=== PATIENT | male | born 1975 | race Caucasian/White ===

== ENCOUNTER 2019-02-01 11:24 | Emergency (ER) | payer MEDICAID, SELFPAY ==
[2019-02-01 11:25] VITALS: BP 149/106; PULSE 87; RESP 17; TEMP 36.9; O2SAT 98; BMI 23.6
--- NOTE | 2019-02-01 11:58 | ED.DCSUM_ITS ---
- ER Visit Summary Date of Service: 02/01/19 Chief Complaint: Eyelid red and swollen secondary to foreign body History of Present Illness: The patient is a 43 M past medical or surgical history. He wears glasses but not contacts. He was helping a friend put in a tile floor when he got a piece of tile into his left eyelid. He said he had swelling today and redness of the eyelid when he looked in the mirror he thought he saw some and pulled out a piece of tile out of his left lower lid this morning. He used tweezers to pull it out. He thinks that was the only piece that was in there. But now is concerned it may be infected. He denies any eyeball pain or change in his vision. Physical Examination: Middle-aged male no acute distress vital signs stable afebrile. HEENT exam pupils round react light extra motions are intact. There is no injection. The left lower lid is mildly red and swollen consistent with an infection. I did place tetracaine and floor seen in his left eye and it was unremarkable underfoot lamp examination of body. When evaluating his left lower lid I do not see any obvious signs of foreign body at this time. I discussed that with the patient he understands that we may see all the foreign body due to the swelling and infection. There is no need for any incision and drainage at this time. Otherwise exam unremarkable. Test Results: Discussed with patient we will defer on imaging at this time. He understands if this does not improve he may need imaging to rule out foreign body under the skin. Emergency Department Course and Treatment: Slit-lamp exam the left eye was unre markable. Will be started on Keflex 500 4 times daily for 10 days. Treatment Plan: Warm compresses. Keflex 4 times daily. Follow-up with eye doctor if not improving. If not improving he may need imaging. Disposition: Discharge Impression: Left lower eyelid puncture wound with foreign body removed by patient at home with cellulitis. This note was generated with [employer] dictation software. It may contain incorrect words, spelling, and punctuation that were not noted in review of the chart prior to signing ED Disposition - Plan for ED Patient: Referrals: Care Physician,No Primary [Primary Care Provider] -
--- NOTE | 2019-02-01 12:01 | ED.DEP ---
ED Disposition - Plan for ED Patient: Disposition: Home or Assisted Living Instructions: CELLULITIS, Facial Prescriptions: Cephalexin [Keflex] 500 mg PO Q6 #40 cap Prescription Printed Referrals: Jorge A Pina MD [STAFF PHYSICIAN] - 3-5 Days if not improving Additional Instructions: Warm compresses to your left lower eyelid 4 times a day until better. Keflex antibiotic 1 pill 4 times a day for 10 days. If not improving follow-up with the eye doctor Dr. Pina at [facility]. If not improving we may need to get a CAT scan to look for a foreign body under the skin or this might need to be incised and drained but that is not necessary at this time.
[2019-02-01] MEDS: Tetracaine 0.5% Ophthalmic Bottle 4 DRP LEFT EYE (12:06)
[2019-02-01] MEDS: Cephalexin 250 MG Capsule 500 MG PO (12:06)
[2019-02-01] MEDS: Fluorescein 1 MG STRIP 1 STRIP LEFT EYE (12:06)
== END 2019-02-01 12:09 | disposition home or self-care (01) ==
PROVIDERS: Emergency Provider Emergency Medicine
DX: S01.132A Puncture wound without foreign body of left eyelid and periocular area, initial encounter (principal); H00.035 Abscess of left lower eyelid; W45.8XXA Other foreign body or object entering through skin, initial encounter; Y93.9 Activity, unspecified; Y92.89 Other specified places as the place of occurrence of the external cause; Y99.9 Unspecified external cause status
CPT/HCPCS: 99282

== ENCOUNTER 2024-10-07 22:32 | Emergency (ER) | payer SELFPAY ==
[2024-10-07 22:33] VITALS: BP 147/81; PULSE 68; RESP 18; TEMP 36.4; O2SAT 100; BMI 23.9
--- NOTE | 2024-10-07 22:33 | EX.ED.GENINJ ---
HPI History of Present Illness Chief Complaint: Laceration [facility] Medical History (Updated 10/07/24 @ 22:41 by Andrezj Wheat) Concussion Home Medications ?Medication ?Instructions ?Recorded ?Last Taken ?Type NK 10/07/24 Unknown History cephalexin 500 mg capsule 500 mg PO TID #20 caps 10/07/24 Unknown Rx Allergy/AdvReac Type Severity Reaction Status Date / Time No Known Allergies Allergy Verified 10/07/24 22:32 Family History no significant family his Social History Smoking Status: Current some day smoker tobacco type: cigars EXAM Physical Exam Const Vital Signs: 10/07/24 22:33 Temperature 97.6 F L Temperature Source Temporal Pulse Rate 68 Respiratory Rate 18 Blood Pressure 147/81 H Blood Pressure Mean 103 Pulse Ox 100 Oxygen Delivery Method Room Air [facility] – [place] Narrative Medical decision making narrative: HISTORY OF PRESENT ILLNESS: Chief complaint: Laceration 49-year-old male presents with concern for laceration. The patient states he cut his left index finger on wire and plaster. He states this occurred prior to arrival. Unknown last tetanus. REVIEW OF SYSTEMS: Pertinent positives: Laceration Pertinent negatives: Numbness or tingling PHYSICAL EXAM: Nursing triage notes reviewed, Vital signs reviewed Constitutional: please see mdm Extremities: No edema, intact flexion in the flexor digitorum profundus and flexor digitorum superficialis distributions Neuro: Intact 5/5 strength with ok sign (median), intact finger abduction (ulnar) intact wrist extension (radial n). Intact sensation in the radial, ulnar, and median nerve distributions. Skin: Superficial linear laceration noted to the palmar surface of the second digit in the middle of the phalanx MEDICAL DECISION MAKING: Chief Complaint: please see HPI External records reviewed: Reviewed prior ED visit [facility] Narrative: The patient was initially hemodynamically stable, afebrile and nontoxic-appearing. Exam with small linear superficial laceration noted to the palmar surface of the left second digit The patient suffered lacerations to the left second digit On exam there was no evidence of foreign bodies. There was no evidence of neurovascular injury. Patient had a normal distal vascular exam, and had intact ROM and sensation. There was also no evidence of tendon injury, with normal distal full range of motion, flexion, extension, abduction, abduction. There is no evidence of local joint space involvement at this time. Wound care applied (irrigation and/or local cleansing solution). Laceration repair was then performed please see procedure note. The patient was given signs and symptoms warnings for infection, such as increasing pain, redness, swelling, associated heat, pus or fever. Patient agreed with the plan of care Procedure: Laceration repair. The procedure was performed by myself. Indication: Wound repair Risks and benefits: risks, benefits and alternatives were discussed Consent: Consent was obtained. Wound Details: Wound located the palmar surface of the second digit, approximately 1 cm in length, approximately 1 mm in depth, no foreign bodies noted. No obvious tendinous involvement noted. Anesthesia: 1% lidocaine, digital block (verbal consent obtained from patient). Wound prep: Patient was prepped and draped in the usual sterile fashion. Tetanus: Updated today Irrigation Solution: Saline Wound Preparation: Cleansed with a chlorhexidine bath for approximately 15 minutes The wound was explored to its base in a bloodless field. Procedure Description: Placed 3, 5-0 Chromic Gut sutures with close approximation Patient tolerated the procedure well with no immediate complications The patient and/or family, caregivers express understanding. The patient and/or family, caregivers agrees with the plan. Shared decision making: I will have a discussion with the patient and or visitors regarding risk/benefits of further testing or admission. They will be made aware of of the risk/benefits inherent in this decision they will be given the opportunity to voice understanding. Total critical care time today provided was at least 0 minutes. This excludes separately billable procedures. Critical care time (if documented) is secondary to the patient having high probability of clinically significant/life threatening deterioration in the patient's condition which required my urgent intervention. Impression: 1. Finger laceration Dispo: Discharge This note was generated with [employer] dictation software. It may contain incorrect words, spelling, and punctuation that were not noted in review of the chart prior to signing. Discharge Plan Triage Chief Complaint: Laceration ED Provider: Ranjan Josue Dx/Rx/DC Orders Instructions: ED Laceration Extremity Prescriptions: New cephalexin 500 mg capsule 500 mg PO TID Qty: 20 0RF No Action NK Primary Care Provider: Care Physician,No Primary Referrals: Popeye Lundberg MD [Med Staff - [facility]] - Activity Restrictions/Additional Instructions: Thank you for trusting us with your care today! Please take Tylenol (2 pills, 650 mg), ibuprofen (2 pills, 400 mg) every 6 hours as needed for pain and fever control. Please take antibiotics until course is complete. Please keep wound clean and dry. Please change dressings daily. Please use peroxide Neosporin daily. Your wound has been repaired with absorbable sutures. They should spontaneously resorb on their own within 7 to 10 days. Please return to the emergency department if your symptoms change or worsen. Please follow with your primary care physician for further outpatient evaluation and management. Print Language: Danish Disposition Disposition: Home, Self Care
[2024-10-07] MEDS: Lidocaine 1% (20 ml mdv) 20 ML Vial 5 ML INFILT (22:43)
[2024-10-07 23:15] VITALS: BP 125/89; PULSE 63; RESP 18; TEMP 36.5; O2SAT 98
== END 2024-10-07 23:16 | disposition home or self-care (01) ==
LOC: ED 23:10
PROVIDERS: Emergency Provider Emergency Medicine; Visit Provider Emergency Medicine
DX: S61.211A Laceration without foreign body of left index finger without damage to nail, initial encounter (principal); F17.290 Nicotine dependence, other tobacco product, uncomplicated; W26.8XXA Contact with other sharp object(s), not elsewhere classified, initial encounter
CPT/HCPCS: 12001; 90715; 99283; A4216